=== PATIENT | female | born 1995 | race Caucasian/White ===

== ENCOUNTER 2024-02-27 21:30 | Emergency (ER) | payer MEDICAID ==
[~2024-02-27] VITALS: Ht 149.9 cm; Wt 71.1 kg
[2024-02-27 21:38] VITALS: O2SAT 95
[2024-02-27] MEDS ORDERED: DIPHENHYDRAMINE 50MG CAPSULE PO ONE (21:45)
[2024-02-27] MEDS: METHYLPREDNISOLONE SOD SUCC 125MG/2ML (ACT-O-VIAL) IM STA (22:24)
[2024-02-27] MEDS: DIPHENHYDRAMINE 25MG CAPSULE PO NR (22:24)
[2024-02-27] MEDS: FAMOTIDINE 20MG TABLET PO ONE (22:24)
[2024-02-27] MEDS ORDERED: P50 MT (22:51)
[2024-02-27] MEDS ORDERED: DIPH25CA83 MT (22:51)
[2024-02-27 22:54] VITALS: BP 99/66; PULSE 81; RESP 19; TEMP 36.61404; O2SAT 96
== END 2024-02-27 22:53 | disposition home or self-care (01) ==
LOC: ER 21:46
DX: T78.1XXA Other adverse food reactions, not elsewhere classified, initial encounter (principal); Z88.8 Allergy status to other drugs, medicaments and biological substances; X58.XXXA Exposure to other specified factors, initial encounter
CPT/HCPCS: 99283; 96372; Q0163; J2919